=== PATIENT | female | born 1980 | race Caucasian/White ===

== ENCOUNTER → 2022-10-08 12:33 | Outpatient (CLI) | payer OTHER, SELFPAY ==
--- NOTE | ~2022-10-08 | MM_ITS ---
EXAMINATION: MM screening dionisio BI w lauri HISTORY: Screening mammogram TECHNIQUE: Craniocaudal and mediolateral oblique 3-D tomosynthesis images were obtained and synthetic 2-D images were generated. CAD analysis was submitted and interpreted. COMPARISON: No prior mammogram is available for comparison at this institution. BREAST PARENCHYMAL COMPOSITION:The breasts are heterogeneously dense, which may obscure small masses. FINDINGS: There is a 1.6 cm round mass in the upper, inner left breast. No mass lesion or distortion are evident in the right breast. No suspicious microcalcifications in either breast. IMPRESSION: 1.6 cm upper, inner left breast mass. Spot compression views and ultrasound are recommended for furt her evaluation. BI-RADS Category 0: Incomplete: Needs additional imaging evaluation. Reviewed, dictated and finalized at [facility]. IMPRESSION: 1.6 cm upper, inner left breast mass. Spot compression views and ultrasound ar e recommended for further evaluation. BI-RADS Category 0: Incomplete: Needs additional imaging evaluation.
== END ==
PROVIDERS: PCP Nurse Practitioner Obstetrics & Gynecology; Visit Provider Nurse Practitioner Obstetrics & Gynecology
DX: Z12.31 Encounter for screening mammogram for malignant neoplasm of breast (principal); R92.8 Other abnormal and inconclusive findings on diagnostic imaging of breast
CPT/HCPCS: 77063; 77067

== ENCOUNTER → 2022-11-03 09:21 | Outpatient (CLI) | payer OTHER, SELFPAY ==
--- NOTE | ~2022-11-03 | MMUS_ITS ---
EXAMINATION: MM diagnostic dionisio LT w lauri, US breast LT limited HISTORY: Left breast mass TECHNIQUE: Additional 3-D tomosynthesis images of the left breast were performed and synthetic 2-D im ages were generated. CAD analysis was submitted and interpreted. High resolution limited left breast ultrasound was performed. COMPARISON: 10/08/2022 FINDINGS: MAMMOGRAPHIC FINDINGS: There is a 1.5 cm round, circumscribed, equal density mass in the middle third of the upper inner tip ast at the 11:00 location 4.5 cm from the nipple. No suspicious calcification or architectural distor tion are identified. ULTRASOUND: There is a 1.5 cm cyst at the 10:00 location, 5 cm from the nipple corresponding to the mammographic finding in question. An adjacent 7 mm cyst is also noted at the 10:00 location. There is a 1.9 x 1.1 cm oval, circumscribed, parallel, hypoechoic mass with microlobulated margins, posterior acoustic enh ancement, and peripheral vascularity at the 12:00 location, 3 cm from the nipple. IMPRESSION: 1. Indeterminate sonographically detected mass at the 12:00 location, 3 cm from the nipple. Ultrasoun d-guided biopsy is recommend. 2. Simple cyst of the breast corresponding to the finding on screening mammogram. BI-RADS category 4, suspicious findings. Reviewed, dictated and finalized at location [facility]. IMPRESSION: 1. Indeterminate sonographically detected mass at the 12:00 location, 3 cm from the nipple. Ultrasound-guided biopsy is recommend. 2. Simple cyst of the breast corresponding to the finding on screening mammogra m. BI-RADS category 4, suspicious findings.
== END ==
PROVIDERS: PCP Nurse Practitioner Obstetrics & Gynecology; Visit Provider Nurse Practitioner Obstetrics & Gynecology
DX: N63.20 Unspecified lump in the left breast, unspecified quadrant (principal); R92.8 Other abnormal and inconclusive findings on diagnostic imaging of breast
CPT/HCPCS: 76642; 77061; 77065; G0279

== ENCOUNTER 2022-12-28 09:57 | Outpatient (CLI) | payer OTHER, SELFPAY ==
--- NOTE | ~2022-12-28 | MMUS_ITS ---
MM post biopsy invasive LT, US breast biopsy LT w image EXAMINATION: US GUIDED NEEDLE BIOPSY WITH VACUUM ASSISTANCE DATE: 12/28/2022 11:57 CDT INDICATION: Left breast mass seen on prior examination. Ultrasound-guided core biopsy is requested t o evaluate for malignancy. TECHNIQUE AND FINDINGS: The risks and potential benefits of the procedure were discussed with the patient, and written inform ed consent was obtained. After sterile preparation of the left breast, 1% lidocaine was utilized for local anesthesia. 1% lidocaine with epinephrine was used for deep anesthesia. A 10G vacuum-assisted biopsy gun needle was advanced through to the outer edge of the region of inter est from a superior approach utilizing sonographic guidance. A total of three tissue core samples we re obtained through the lesion. The mass completely resolved post biopsy, possibly a complicated cyst . An Inrad tissue marker clip was then placed at the biopsy site. Hemostasis was achieved. The patient tolerated procedure well and there was no evidence of immediate complication. The patien t was given verbal instructions partly is from the department. Left breast mammograms to document ti ssue marker clip placement. The tissue samples were submitted to surgical pathology for histologic an alysis. IMPRESSION: 1. Successful ultrasound-guided vacuum-assisted biopsy of left breast mass with tissue marker placem ent. There is complete resolution of the mass post biopsy. Please refer to pathology report for histo logic analysis. Reviewed, dictated and finalized at location [facility]. IMPRESSION: 1. Successful ultrasound-guided vacuum-assisted biopsy of left breast mass wit h tissue marker placement. There is complete resolution of the mass post biopsy . Please refer to pathology report for histologic analysis.
== END 2022-12-28 09:58 | disposition home or self-care (01) ==
PROVIDERS: PCP Nurse Practitioner Obstetrics & Gynecology; Visit Provider Surgery
DX: N60.02 Solitary cyst of left breast (principal)
CPT/HCPCS: 19083; 88305; A4648

== ENCOUNTER 2024-09-11 13:30 | Emergency (ER) | payer OTHER, SELFPAY ==
--- NOTE | 2024-09-11 13:39 | ED_ITS ---
HPI - General Adult General Chief complaint: Dizziness Stated complaint: Dizziness Time Seen by Provider: 09/11/24 13:44 Source: patient, RN notes reviewed and old records reviewed Mode of arrival: ambulatory Limitations: no limitations History of Present Illness HPI narrative: 43-year-old female presents to the [facility] with complaints of intermittent dizziness for approximately 1 month. States that started when she was visiting family in [place]. Patient states that she did a telehealth visit in early August, was prescribed Antivert, did not take it due to what she read about side effects. Patient states that she will feel hot, get dizzy feeling like a motion sickness at times has throbbing behind her right eye. Denies any vomiting, fevers, chest pain, denies racing are. Has felt nauseous, flushed at times. Patient reports that when she is on her phone to lung or scrolling as well as on a computer she will also get dizzy. Onset (ago): month(s) (1) Treatments prior to arrival: none Related Data Allergies Allergy/AdvReac Type Severity Reaction Status Date / Time No Known Allergies Verified 09/04/10 03:32 Review of Systems Review of Systems: All systems reviewed & are unremarkable except as noted in HPI and below Constitutional: Constitutional: Reports no additional constitutional complaints ENT: Reports system reviewed and no additional complaints, except as documented Cardiovascular: Cardiovascular: Reports no additional cardiovascular complaints, Denies chest pain and Denies dyspnea Respiratory: Respiratory: Reports no additional respiratory complaints, Denies chest congestion, Denies cough and Denies dyspnea Musculoskeletal: Musculoskeletal: Reports no additional musculoskeletal complaints Integumentary/Breasts: Skin/Breast: Reports system reviewed and no additional complaints, except as docu Neurologic: Reports as per HPI [facility], [facility] Past Medical History Medical History (Updated 09/11/24 @ 13:59 by Joy Drake APRN) Ganglion cyst of left foot 10/2020 Social History Social History (Updated 11/29/22 @ 13:33 by Estee Vera CMA) Smoking status: Current every day smoker Tobacco type: cigarettes Additional smoking assessment comments: 1/2 pack a day Alcohol intake: current Alcohol use details: special occassion Substance use: never Substance use type: marijuana Lack of Transportation: No Lack of Food: Never True Current Housing: I Have Housing Concerned About Future Housing: No Difficulty Paying Gas/Electric Bills: No Difficulty Paying for Meds: No Currently Unemployed: No Education: Associate Degree Difficulty w/ Childcare or Family Care: No Comments At the time of my signature, I reviewed and agree with the nursing past medical, surgical, social, and family history. There is no relevant family history pertinent to the patient complaint. Exam Const: General: cooperative, healthy appearing, comfortable, no acute distress, well developed, alert and well nourished Nutritional Appearance: well nourished Orientation/consciousness: patient oriented x3 Limitations: no limitations HENMT: Head: normal to inspection Ears: hearing grossly normal bilaterally, external ears normal, TM normal on the left, EAC's normal, mastoids normal, no periauricular adenopathy and TM abnormal with fluid behind the TM on the right; not bulging Face/Nose/Sinus: Normal external nose present Face and sinus: normal facial exam Mouth: Yes Normal oral and palatal mucosa present, Yes lip normal, Yes tongue normal and Yes moist mucous membranes Throat: posterior oropharynx normal, uvula midline and no uvular edema Eyes: General: appearance normal, both eyes and all related structures Visual Holt: normal visual holt by confrontation Alignment and Position: alignment normal Periorbital: periorbital findings normal Eyelids: eyelids normal Sclera: sclerae normal Cornea: corneas normal Pupils: Equal, round and reactive pupils present and Pupils normal by confrontation EOM: EOMs intact bilaterally and No Nystagmus present Direct Ophthalmoscopy: no photophobia Neck: Neck: normal visual inspection, full ROM, no lymphadenopathy and no meningeal signs Chest: Chest palpation & inspection: normal inspection of the chest Resp: Effort & Inspection: normal respiratory effort and able to speak in complete sentences Auscultation: clear to auscultation bilaterally, no crackles, no rales, no rhonchi and no wheezes Cardio: Rate: regular rate Skin: General skin exam: normal color and no rashes or lesions noted Neuro: General: patient oriented x3, gait normal, tone normal, moves all extremities, no meningeal signs and no focal motor deficits Cranial nerves: Yes facial sensation intact/muscles of mastication intact, Yes Equal, round and reactive pupils present, Yes Bilaterally intact EOM present, Yes Nystagmus not present, Yes Normal facial strength present, Yes facial symmetry, Yes Midline tongue present and Yes Symmetric palate elevation present Cognition (Neuro): normal cognition Speech: normal speech Gait exam (Neuro): Normal gait present Motor exam (neuro): 5/5 motor strength present throughout and Motor abnormalities not present Extrem: General: normal to inspection, full ROM, capillary refill normal and normal gait Psych: Appearance: grossly normal and well kempt Mental Status: mental status grossly normal Speech and movement: Normal speech and movement present and Clear speech present Affect: normal affect Attitude: cooperative Course Course Level of Care: Express Care Visit Vital Signs Vital signs: Vital Signs Temperature 97.2 F L 09/11/24 13:40 Pulse Rate 78 09/11/24 13:40 Respiratory Rate 18 09/11/24 13:40 Blood Pressure 145/80 H 09/11/24 13:40 Pulse Oximetry 100 09/11/24 13:40 Oxygen Delivery Room Air 09/11/24 13:40 Temperature 97.2 F L 09/11/24 13:40 Pulse Rate 78 09/11/24 13:40 Respiratory Rate 18 09/11/24 13:40 Blood Pressure 145/80 H 09/11/24 13:40 Pulse Oximetry 100 09/11/24 13:40 Oxygen Delivery Room Air 09/11/24 13:40 Reviewed Medical Decision Making MDM Narrative Medical decision making narrative: Patient sitting comfortably in exam room. Nontoxic, vitals stable. Patient in no acute distress Patient presents for intermittent dizziness. No neurologic deficits, no abnormal findings. Patient with most likely vertigo, encourage patient to follow-up with primary care provider in discussed signs and symptoms of proceed to the emergency room which she verbalized understanding Discharge instructions reviewed with patient, as well as provided in writing per nursing staff. The instructions also include specific and strict return/GO TO THE ER as well as f/u information. All questions have been answered, and the patient deny any further questions with discharge and discharge plan. Some parts of this dictation were generated by voice recognition software and may contain typographical and/or grammatical inaccuracies. Differential Diagnosis Differential Diagnosis: Vertigo, dizziness Medical Records Medical records reviewed: Yes I reviewed the external patient's medical records. Vital Signs Vital Signs: Vital Signs Temperature 97.2 F L 09/11/24 13:40 Pulse Rate 78 09/11/24 13:40 Respiratory Rate 18 09/11/24 13:40 Blood Pressure 145/80 H 09/11/24 13:40 Pulse Oximetry 100 09/11/24 13:40 Oxygen Delivery Room Air 09/11/24 13:40 Temperature 97.2 F L 09/11/24 13:40 Pulse Rate 78 09/11/24 13:40 Respiratory Rate 18 09/11/24 13:40 Blood Pressure 145/80 H 09/11/24 13:40 Pulse Oximetry 100 09/11/24 13:40 Oxygen Delivery Room Air 09/11/24 13:40 Reviewed Lab Data Lab results reviewed: Yes I reviewed the patient's lab results. Labs: Reviewed Critical Care Time Critical Care Time Critical Care Time: No Discharge Plan Discharge Clinical Impression: Vertigo Patient Disposition: Home, Self-Care Condition: Stable Instructions: Antibiotic Form, Benign Paroxysmal Positional Vertigo (ED), Dizziness (ED) Additional Instructions: take meclizine as prescribed follow-up with primary care provider for worsening symptoms go directly to the emergency room Patient Language: Czech Follow-up/Referrals: Jose Alejandro Michael DO [Physician] - Gordon Nichols MD [Primary Care Provider] - Stand Alone Forms: Work/School Release IP Time of Disposition: 13:58
[2024-09-11 13:40] VITALS: BP 145/80; PULSE 78; RESP 18; TEMP 36.2; O2SAT 100
--- OUTSIDE RECORDS SUMMARY | 2024-09-11 14:41 | XMS_ITS | Clinical Summary ---
Author Organization [facility] Address [address] [place] [address] Care Team Providers Care Valve Tester Name Role Phone Unavailable Primary Care Provider Unavailabl e Source Comments [facility],non-owned Affiliates and Associated Physician Practices is amultiple site organization consisting of ambulatory clinics and hospital sitesin [place], [place], [place] and [place]. This disclosure is being madepursuant to the Care Everywhere program and may not contain all information available regarding this patient. Last updated 18.[facility] Allergies No known active allergies Medications * Be aware that medications may not be up to date on this document. Alwaysverify current medications with the patient. 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 Pulse 82 06/27/2019 3:29 PM 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 Temperature 36.9 C (98.4 F) 06/27/2019 3:29 PM 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 Respiratory Rate 16 06/27/2019 3:29 PM 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 Oxygen Saturation 96% 06/27/2019 3:29 PM 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 Inhaled Oxygen Concentration - - Weight 70.3 kg (155 lb) 06/27/2019 3:29 PM 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 Height 157.5 cm (5' 2 ) 06/27/2019 3:29 PM 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 Body Mass Index 28.35 06/27/2019 3:29 PM 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 Plan of Treatment Health Maintenance Due Date Last Done Comments LIPID TESTING 1979 MAMMOGRAM 1979 PAP SMEAR 1979 HIV SCREENING 10/09/1994 HEPATITIS C SCREENING 10/05/1997 DTAP/TDAP/TD VACCINES (1 - Tdap) 10/09/1998 HEPATITIS B VACCINE (1 of 3 - 19+ 3-dose series) 10/09/1998 PNEUMOCOCCAL VACCINE (1 of 2 - PCV) 10/09/1998 COVID-19 VACCINE (1 - 2023-2 5 season) 2024 INFLUENZA VACCINE (#1) 2024 DEPRESSION SCREENING 06/13/2024 ZOSTER VACCINE (1 of 2) 10/09/2029 HIB VACCINE Aged Out No longer eligi ble based on patient's age to complete this topic HPV VACCINE Aged Out No longer eligi ble based on patient's age to complete this topic MENINGOCOCCAL (Group B) VACC INE SHARED DECISION-MAKING Aged Out No longer eligibl e based on patient's age to complete this topic MENINGOCOCCAL GROUPS A/C/Y/W VACCINE Aged Out No longer eligible b ased on patient's age to complete this topic
--- OUTSIDE RECORDS SUMMARY | 2024-09-11 14:41 | XMS_ITS | Clinical Summary ---
Author Organization [facility] Address [address] [place] [id number] Care Team Providers Care Line Cleaner Name Role Phone Gordon Nichols MD Primary Care Provider [phone] Allergies No known active allergies Medications acetaminophen 500 MG tablet Take 500 mg by mouth every 6 (six) hours as needed for Pain. Active HYDROcodone-acet aminophen 5-325 MG tabletIndication s:Acute Pain < 7 Day Supply Take 1 tablet by mouth every 6 (six) hours as needed for Pain. Indications : Acute Pain < 7 Day Supply 20 tablet 10/24/2020 Active ibuprofen 800 MG tabletIndication s:Mass of soft tissue of foot Take 1 tablet (800 mg total) by mouth every 8 (eight) hours as needed for Pain. 30 tablet 10/24/2020 Active Active Problems No known active problems Family History Medical History Relation Comments Hypertension Father Hypertension Mother Relation Status Comments Daughter Alive Father Alive Mother Alive Son Alive Social History Tobacco Use Types Packs/Day Years Used Date Smoking Tobacco: Every Day Cigarettes 0.5 15 Smokeless Tobacco: Never Alcohol Use Standard Drinks/Week Comments Not Currently 0 (1 standard drink = 0.6 oz pure alcohol) very rarely drinks alcohol, couple drinks a year Comments No Sex and Gender Information Value Date Recorded Sex Assigned at Not on file Legal Sex Female 6:16 PM CDT Gender Identity Not on file Sexual Orientation Not on file Last Filed Vital Signs Vital Sign Reading Time Taken Comments Blood Pressure 121/75 10/24/2020 1:50 PM CDT Pulse 74 10/24/2020 1:50 PM CDT Temperature 36.7 C (98 F) 10/24/2020 1:50 PM CDT Respiratory Rate 16 10/24/2020 1:50 PM CDT Oxygen Saturation 100% 10/24/2020 1:50 PM CDT Inhaled Oxygen Concentration - - Weight 69.2 kg (152 lb 8.9 oz) 10/24/2020 9:45 A M CDT Height 160 cm (5' 3 ) 10/21/2020 12:59 PM CDT Body Mass Index 27.02 10/21/2020 12:59 PM CDT Plan of Treatment Health Maintenance Due Date Last Done Comments Cervical Cancer Screening Pa p Smear (Age 30 to 64) Every 3 Years 1979 Annual Physical 10/09/1982 Pneumococcal Vaccine: Pediat rics (0 to 5 Years) and At-Risk Patients (6 to 64 Years) (1 of 2 - PCV) 10/09/1985 Hepatitis C 10/09/1997 DTaP, Tdap and Td Vaccines ( 1 - Tdap) 10/09/1998 Hepatitis B Vaccines (1 of 3 - 19+ 3-dose series) 10/09/1998 Cervical Cancer Screening Pa p with HPV Testing (Age 30 to 64) Every 5 Years 10/09/2009 Cervical Cancer Screening with HPV 10/09/2009 Mammogram Screening 2019 COVID-19 Vaccine ( - 2023-2 5 season) 2024 Influenza Adult (#1) 2024 HPV Vaccines Aged Out No longer eligi ble based on patient's age to complete this topic Meningococcal B Vaccine Aged Out No l onger eligible based on patient's age to complete this topic Meningococcal Vaccine Aged Out No adolfo sarahi eligible based on patient's age to complete this topic RSV Immunizations Under 20 Months Aged Out No longer eligible based on patient's age to complete this topic Insurance Care Teams Line Cleaner Relationship Specialty Start Date End Date Gordon Nichols MD [address] [place] [id number] PCP - General FAMILY PRACTICE 10/21/20
--- OUTSIDE RECORDS SUMMARY | 2024-09-11 14:42 | XMS_ITS | Encounter Summary ---
Author Organization [facility] Address [address] [place] [address] Care Team Providers Care Brand Director Name Role Phone Gordon Nichols MD Primary Care Provider [phone] Encounter Details Date Type Department Care Team (Late st Contact Info) Description 10/24/2020 Prep for Procedure [facility]-Ad[facility] Testing [address] [place] [id number] Manuel Perez, DPM [address] [place] [id number] Social History Tobacco Use Types Packs/Day Years [...] on file Sexual Orientation Not on file COVID-19 Exposure Response Date Recorded In the last month, have you been in contact with someone who was confirmed or suspected to have Coronavirus / COVID-19? No / Unsure 10/24/2020 9:11 AM CDT documented as of this encounter Plan of Treatment Not on file documented as of this encounter Visit Diagnoses Diagnosis Preoperative testing- Primary Preoperative examination, unspecified documented in this encounter Additional Health Concerns Infection Onset Date Last Indicated Resolved Time COVID-19 Rule Out 10/23/2020 10/23/2020 10/24/2020 7:45 AM CDT documented as of this encounter Care Teams Brand Director Relationship Specialty Start Date End Date Gordon Nichols MD [address] [place] [address] PCP - General FAMILY PRACTICE 10/21/20 documented as of this encounter
--- OUTSIDE RECORDS SUMMARY | 2024-09-11 14:42 | XMS_ITS | Continuity of Care Document ---
Author Organization [facility] Address [address] [place] [address] [address] [place] [address] Phone Care Team Providers Care Non Food Receiving Clerk Name Role Phone Jovana Estevez Unavailable Unavailable Procedures Procedure Date Removal Of Chalazion Advance Directives Directive Yes / No Effective Date File Name No Information Encounters Encounter Description Practice Location Reason(s) For Visit Diagnoses Date Provider Providers Copied on Encounter [facility], [address] [place] [address] [address], [place], [place], [id number], [place] tel:[phone] [facility] No Information Aug-0 9-201 0 Zenaida Whaley. [address] , [address], [place], [address], [place]. tel:[phone] Referring Provider: Christina Carrillo OD, [address] [place], [address]. tel:[phone] Family History Family Member Type Diagnosis Age At Onset No Information Payers Payer name Insurance type Covered republican ID Authoriza tion(s) [facility] Commercial CI [id number] Social History Type Description Quantity Date Captured Comments Sex Female Smoking Status No Information Chief Complaint And Reason For Visit No Information Reason For Referral Reason For Referral No Information History Of Present Illness Encounter Date Complaint History Of Prese nt Illness No Information Functional Status Date Functional Assessmen t No Information Instructions Date Instruction Additional Infor mation No Information Assessments Type Assessment Date No Information Patient Care Teams Name Effective Dates (start - stop) Status Members No Information
--- OUTSIDE RECORDS SUMMARY | 2024-09-11 14:42 | XMS_ITS | Data Portability ---
Author Organization [facility] Address [address] [place] [address] Care Team Providers Care Dog Or Horse Racing Official Name Role Phone TERRY HERNANDEZ Primary Care Provider [phone] Assessment Encounter Date Assessment Date Assessment LastModified by Organization Details LastModified Time 05/25/2022 05/25/2022 Annual gynecological exam performed. Patient will come back in a year unless there are new symptoms. [email or web address] Not available 05/25/2022 11:25:03 Plan of Treatment Reminders Order Date Submit Date Provider Last Modified By Organization Details Last Modified Time Details Appointments None record ed. Lab None record ed. Referral None record ed. Procedures None record ed. Surgeries None record ed. Imaging None record ed. Medication Orders None record ed. Patient TargetsNo targets recorded. Patient Instructions Encounter Date Encounter Id Patient Instructions Last Modified By Organization Details Last Modified Time 09/26/2019 850 call if any questions or concerns Not available 09/26/2019 12:11:33 Reason for Referral None Reported. Results Created Date Observation Date Name Description Value Unit Range Abnormal Flag Note LastModifiedBy Organization Detail LastModifiedTime 05/25/2005/25/2022 IMAGE GUIDE D PAP AND HPV REGAR DLESS image guided Pap, HPV regardless of Pap result SEE RESULT S BELOW CASE REPOR T: Cytol ogy Gynec ologi mali Repor t Case: [id number] Autho lacey fabian Provi kailee: Brent Jackman Colle cted: 05/25 1414 CLERICAL OFFICE Order ing Locat ion: [place] [facility] Recei maria a: 05/26 0606 First Scree n: DeLuc a, Marcia, CT Rescr een: Shaila Willingham, CT Speci men: Scree rickey Pap - Image d, Cervi x STATE MENT OF ADEQU ACY: Satis facto ry for evalu ation Trans forma tion zone compo nent prese nt FINAL DIAGN OSIS: Negat michele for Intra epith elial Lesio n or Jaleesa rizocy (NIL) . Shift in perfecto sugge stive of bacte rial vagin osis. Elect holger cartagena stephanie d by Shaila Willingham, CT on 05/27 at 7:45 AM ----- ----- ----- ----- ----- ----- ----- ----- ----- ----- ----- ----- ----- ----- ----- ----- ----- ---- HPV RESUL TS: HPV mRNA E6/E7 : No HPV mRNA Detec rola NOTE: This high risk HPV mRNA assay detec ts fourt een high- risk HPV types (16, 18, 31, 33, 35, 39, 45, 51, 52, 56, 58, 59, 66, 68) witho ut diffe renti ation . COMME NT: Note: This speci men was revie wed by a Cytot echno logis t and/o r Patho logis t (as indic ated in this repor t) after evalu ation using the Thinp rep Imagi ng Syste m. CLINI MALI INFOR MATIO N: Menst rual Statu s: LMP (if appli cable ): 2021 Clini mali Histo ry/Pr eviou s Pap: Type of Neopl pa (if appli cable ): Signi fican t Clini mali Findi ngs: Other Histo ry: Hormo grace (if appli cable ): PAP EDUCA JATINDER L NOTE: The Pap Test is a scree rickey test with an inher ent false negat michele rate. Liqui d-bas ed sampl ing may decre ase, but will not elimi yvan, false negat michele resul ts. A negat michele resul t does not precl ude the prese nce and/o r devel opmen t of disea se, since the prese nce of abnor mal cells in the sampl e depen ds on the locat ion of the lesio n and sampl ing techn ique. Christiano nued regul ar scree rickey is the best metho d of cance r preve ntion . If repor rola cytol ogic findi ng do not corre late with physi mali and/o r histo rical findi ngs, furth er inves tigat ion is recom gisella d, as clini deysi warra nted. Not Available [facility] (Lab) [address], [place], [address], 05/27/2022 08:48:59 10/09/19 23 10/08/2022 MAMMO , scree rickey, bilat eral No observ ation record ed. [address], [place], [address], 10/20/2022 12:24:37 10/09/19 23 10/08/2022 MAMMO , scree rickey, bilat eral No observ ation record ed. [email or web address] [facility] [address], [place], [address], 10/12/2022 14:12:08 10/13/19 23 10/08/2022 MAMMO , scree rickey, bilat eral No observ ation record ed. [address] [facility] [address], [place], [address], 10/20/2022 12:24:38 11/05/19 23 11/03/2022 MAMMO , diagn ostic , digit al, unila teral No observ ation record ed. [address] [facility] [address], [place], [address], 11/22/2022 12:33:36 11/05/19 23 11/03/2022 MAMMO , diagn ostic , digit al, unila teral No observ ation record ed. [email or web address] [facility] [address], [place], [address], 11/11/2022 11:57:11 Result Notes None recorded. Problems Name Problem SNOMED Code Status Onset Date Resolution Date Notes Provider Name and Address Organization Details Recorded Time Uses IUD (intraute rine device) contracep tion 350014382 Active 2014 Surveillan ce of intrauteri ne contracept michele device;Rec orded Elsewhere: No Locatio n: [facility] Anahi rce: EHR Chroni c: N Practice ID: [id number] Billa ble Time: 09:45:00 AM Not Available [facility] 0 22:00:10 Problem Notes None recorded. Procedures Surgical History Date Name Laterality Status Provider Name and Address Organization Details Recorded Time 2 Date of Last Pap Smear completed Glory Cabrera [facility] 05/25/2022 11:26:59 1 procedure on foot completed Gloryiliana Cabrera [facility] 05/25/2022 11:28:51 Imaging Results Imaging Date Name Status LastModified by Organiz atformerly [facility] Details LastModified Time 10/08/2022 MAMMO, screening, bilateral completed [email or web address] [facility] [address], [place], [address], 10/20/2022 12:24:37 10/08/2022 MAMMO, screening, bilateral completed [email or web address] [facility] [address], [place], [address], 10/12/2022 14:12:08 10/08/2022 MAMMO, screening, bilateral completed [email or web address] [facility] [address], [place], [address], 10/20/2022 12:24:38 11/03/2022 MAMMO, diagnostic, digital, unilateral completed [email or web address] [facility] [address], [place], [address], 11/22/2022 12:33:36 11/03/2022 MAMMO, diagnostic, digital, unilateral completed [email or web address] [facility] [address], [place], [address], 11/11/2022 11:57:11 Procedure Notes None recorded. Medical Equipment None Reported. Allergies No known drug allergies Medications Name Sig Start Date Stop Date Status Note LastModified by Organization Details LastModified Time Mirena 21 mcg/24 hr (up to 8 years) 52 mg intrauter ine device Take 1 device by intraute rine route as directed . 2019 active removal date 5 Not Available Not Available Not Available benzonata te 200 mg capsule 09/25 completed Not Available Not Available Not Available clobetaso l 0.05 % topical cream apply by topical route 2 times every day a thin layer to the affected area(s) 10/04 completed Prescrib ed Elsewher e: No Locat ion: [facility] odify By: irena ramirez Enco unter DateTime : 01/26/20 12 09:15:00 AM Not Available Not Available Not Available Diflucan 150 mg tablet take 1 tablet (150MG) by oral route once 10/04 completed Prescrib ed Elsewher e: No Locat ion: [facility] odify By: irena pulidoi Enco unter DateTime : 01/26/20 12 09:15:00 AM Not Available Not Available Not Available Metrogel Vaginal 0.75 % (37.5 mg/5 gram) insert 1 applicat orful by vaginal route every day at bedtime for 5 nights. 10/25 completed Prescrib ed Elsewher e: No [facility] od[facility] By: val Guardado er DateTime : 10/26/19 14 10:03:30 AM Not Available Not Available Not Available amoxicill in 875 mg-potass ium clavulana te 125 mg tablet 09/25 completed Not Available Not Available Not Available Ortho-Cyc dariana (28) 0.25 mg-35 mcg tablet take 1 tablet by oral route every day 11/07 completed Prescrib katrin Thurman e: Tammy [facility]ara[facility] By: saskia barron DateTime : 10/26/19 10:15:00 AM Not Available Not Available Not Available Vitals Date Recorded Body height Body mass index (BMI) Body weight Systolic blood pressure Diastolic blood pressure Provider Name and Address Organization Details Last Updated DateTime 09/26/2019 160.66 cm 28.6 kg/m2 99996.56 g 132 mm[Hg] 79 mm[Hg] Glory Cabrera [facility] 0 16:54:54 Date Recorded Body height Body mass index (BMI) Body weight Provider Name and Address Organization Details Last Updated DateTime 05/25/2022 160.02 cm 28 kg/m2 46002.59 g Glory Cabrera [facility] 05/25/2022 11:25:31 Date Recorded Systolic blood pressure Diastolic blood pressure Provider Name and Address Organization Details Last Updated DateTime 05/25/2022 126 mm[Hg] 74 mm[Hg] Annie Blackman, [facility]- [address], [place], [address], [facility] 05/25/2022 11:33:08 Social History Question Answer Notes LastModified by Organizat ion Details LastModified Time Tobacco Smoking Status Current Every Day Smoker Glory Cabrera null, [facility] 05/25/2022 11:26:02 What Is Your Level Of Alcohol Consumption? Occasional [id number] Information not available 04/15/2020 Are You Blind Or Do You Have Difficulty Seeing? No [email or web address] Information not available 05/25/2022 What Is Your Level Of Caffeine Consumption? Moderate [email or web address] Information not available 05/25/2022 In The 14 Days Before Symptom Onset, Have You Had Close Contact With A Laboratory-confir [facility] COVID-19 While That Case Was Ill? No [email or web address] Information not available 05/25/2022 In The 14 Days Before Symptom Onset, Have You Had Close Contact With A Person Who Is Under Investigation For COVID-19 While That Person Was Ill? No Information not available 05/25/2022 Have You Been To An Area Known To Be High Risk For COVID-19? No [email or web address] Information not available 05/25/2022 Are You Deaf Or Do You Have Serious Difficulty Hearing? No [email or web address] Information not available 05/25/2022 What Type Of Diet Are You Following? REGULAR [email or web address] Information not available 05/25/2022 Which Illicit Or Recreational Drugs Have You Used? No [email or web address] Information not available 05/25/2022 What Is The Highest Grade Or Level Of School You Have Completed Or The Highest Degree You Have Received? 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 No [email or web address] Information not available 05/25/2022 What Was The Date Of Your Most Recent Tobacco Screening? 05/25/2022 [email or web address] Information not available 05/25/2022 Do You Use Protection During Sex? No [email or web address] Information not available 05/25/2022 Do You Use Your Seat Belt Or Car Seat Routinely? Yes [email or web address] Information not available 05/25/2022 Do You Have Smoke And Carbon Monoxide Detectors In Your Home? Yes [email or web address] Information not available 05/25/2022 How Much Tobacco Do You Smoke? 0.5 PPD [id number] Information not available 04/15/2020 Do You Feel Stressed (tense, Restless, Nervous, Or Anxious, Or Unable To Sleep At Night)? [id number] [email or web address] Information not available 05/25/2022 Do You Use Any Illicit Or Recreational Drugs? No [email or web address] Information not available 05/25/2022 Do You Use Sunscreen Routinely? Yes Information not available 05/25/2022 Have You Used IV Drugs? No [email or web address] Information not available 05/25/2022 Sex: Unknown Functional Status Question Answer Note LastModified by Organizat ion Details LastModified Time Do you have difficulty walking or climbing stairs? No [email or web address] Information not available 05/25/2022 Are you able to walk? YESWOREST [email or web address] Information not available 05/25/2022 Are you able to care for yourself? Yes [email or web address] Information not available 05/25/2022 Do you have difficulty dressing or bathing? No [email or web address] Information not available 05/25/2022 What is your exercise level? Occasional [id number] Information not available 04/15/2020 Mental Status None recorded. Family History Relationship Description Onset Age of this Age Resolved Age Notes LastModified by Organization Details LastModified Time Father Hypertensive disorder [email or web address] Not available 09/25 16:59:32 Sister Asthma [email or web address] Not available 09/26/2019 16:59:43 Brother Asthma [email or web address] Not availabl e 09/26/2019 16:59:58 Medical History Condition Response Allergies (Food, seasonal, environmental ) N Other N Breast Cancer N Drug/Latex Allergies/Reactions N Blood Transfusion N Dermatologic Disorders N Lung Disease N Defects or Inherited Disease N Breast Problem N Gestational Diabetes N Hematologic disorders N Anesthesia Complications N History of STI N Deep Vein Thrombosis N Polycystic ovary syndrome N Anxiety Disorder N Autoimmune disease N Arthritis N Infertility N Polyps N Acid Reflux (GERD) N History of abnormal pap N Cancer N Stroke N Varicosities N Neurologic/Epilepsy N Endometriosis N High Cholesterol N Headaches N Fibromyalgia N Kidney Disease N Heart Problems N Kidney or Bladder Problems N Thyroid Problems N GI Problems N Eating Disorder N Anemia N Art (IVF or FET) N Psychiatric Illness N Ovarian Cancer N Diabetes N Pulmonary (TB, Asthma) N Hepatitis/Liver Disease N No Past Medical History N Eczema N Urinary Tract Infection N Abuse/Domestic Violence N Asthma N Trauma/Violence N Depression/ depression N Heart Disease N Pre-Eclampsia N Hypertension N Osteoporosis N Thrombophilias N Gynecological History Statement/Question Response Date of Last Mammogram Date of LMP 05/13/2022 N Was last menstrual period normal Y STIs/STDs N HPV Vaccine N Duration of Flow (days) 4 Current Control Method IUD Age at First Child 19 Frequency of Cycle (Q days) 44 Sexually Active? Y IUD Date of DEXA bone scan Age of first menstrual cycle 12 Date of Last Pap Smear 05/25/2022 Sexual Problems? N Desired Control Method IUD LMP Approximate N Obstetrics History GPAL:G 2 P 2 0 0 2 Type Value Full Term 2 Living 2 Total 2 Past Encounters Encounter ID Performer Location Encounter Start Date Encounter Closed Date Diagnosis/Indication Diagnosis SNOMED-CT Code Diagnosis ICD10 Code Diagnosis Note [address] [facility] [address],[place] [address] 09/26/2019 10:54:54 09/27/2019 15:56:55 [id number] Annie Blackman [place] [address],[place] [address] 05/19/2022 10:45:35 06/12/2022 11:55:14 [id number] Annie Blackman , [place] [address],[place] [address] 05/25/2022 11:17:15 05/25/2022 17:58:30 Gynecologic examination 96250447 Z01.419 Suggested Calcium with Vitamin D 1200-1500m g daily. Patient advised to get an annual flu shot in the fall and she could obtain at [facility] or [facility]. Also to obtain TDap vaccinatio n if you have not had one in the last 10 years. Recommend yearly mammograms . Encouraged monthly self breast exams. Encourage safe sexual practices, to use condoms and limit partners if not already in a monogamous relationsh ip. Engage in daily exercise of low impact aerobic exercise 45-60 minutes 4-5 times weekly. Avoid tobacco and illicit drugs as well as using moderation with alcohol intake less than 1-2 8 oz beverages daily. This lifestyle behavior pattern will lead to less health conditions and longer life span. If BMI greater than 25 weight watchers or dietary consult advised. All questions have been answered. Patient appears to understand informatio n, but if you have any questions please call or respond to this email. Pap/hpv sent STD Screen declined Genetic Screen discussed Colon Screen na Dexa Screen na Routine Labs PCPMammo ordered Health Concerns Section Related Observation LastModified by Organization Detai ls LastModified Time None Recorded Concern Status LastModified by Organization Details LastModified Time None Recorded Advance Directives Directive None Recorded Payers Encounter Date Sequence Insurance Name Policy Number Policy Oliveira Covered Member ID Oliveira Member ID Guarantor Name 09/26/2019 1 [facility]: ([place] [id number] Jonna Blanchard [id number] Jonnaaustin Blanchard 05/19/2022 1 [facility] [id number] Jonna Blanchard [id number] Jonna Blanchard 05/25/2022 1 [facility] [id number] Jonna Blanchard [id number] Jonna Blanchard Notes Date Note Type Note Provider Name and Address Organization Details Recorded Time 09/26/2019 text/html pt has no issues with IUD, no complaints Genny De Leon CNM [address], [place], [address], [facility] 09/26/2019 12:12:38 05/19/2022 text/html Unbillable encounter.Reschedu led [facility] [address], [place], [address], [facility] 06/12/2022 11:55:13 05/25/2022 text/html Annual GYNReport ed bypatient.History: no gynecologic complaints Menstrual cycle:Normal menses Urinary symptoms:No hematuria; No incontinence Vulva:No genital lesion Vagina:Normal vaginal discharge Breast:No breast pain; No breast lump; No nipple discharge Current Contraception:Sati sfied with current contraception; Intrauterine device (iud) Sexual complaints:No sexual complaints; No pain during intercourse; Normal libido Menopausal Symptoms:No menopausal symptoms; Normal vaginal lubrication Psychological symptoms:No depression; No anxiety; No PMDD Preventive measures:Encourage self breast examination; Encourage regular exercise; Encourage no tobacco use; Encourage regular mammograms starting age 40; Followed with yearly pap smears; Needs to schedule mammogram MILANA Lim [address], [place], [address], [facility] 05/25/2022 11:44:28 OBGyn Episode Ob Episode Information Episode Created Date Number of Fetuses Patient Bloodtype Patient rh Status Prepregnancy Weight lbs Domestic Partner Domestic Partner Phone Father Name Heel Lining Paster Status 09/26/19 20 1 CLOSED Fetus Data First Name Last Name Admitted to NICU Weight (g) Sex Living Outcome Pediatric Complications Fetus ID Race Codes Race Delivery Type 3288.54 2 F Full Term 468 Vaginal Delivery Nitesh Calculation Initial Nitesh Date Initial Exam Date Initial Exam Provider Initial Ultrasound Date Last Menstrual Period Date Ultra Sound Weeks Gestation 0 Eighteen To Twenty Week Nitesh Update Ultra Sound Date Fundal Height At Umbil Quickening Date Ultra Sound Latest Weeks Gestation Final Nitesh Confirmed By Final Nitesh Confirmed Date Final Nitesh Date Ultra Sound Latest Days Gestation 0 0 Menstrual History Last Menstrual Date Menses Monthly On Bcp Conception Prior Menses Frequency Hcg Plus Date Menarche Onset Age Delivery Information Delivery Date Delivery Type Labor Anesthesia Weeks Gestation Incision Type Labor Labor Length Hrs Delivered By Post Complications Tubal Sterilization Discharge Date Comments 1 40 Chris 3rd degree laceratio n Discharge Information Feeding Method Contraceptive Method Maternal HG B and HCT Levels Ob Episode Information Episode Created Date Number of Fetuses Patient Bloodtype Patient rh Status Prepregnancy Weight lbs Domestic Partner Domestic Partner Phone Father Name Heel Lining Paster Status 09/26/19 20 1 CLOSED Fetus Data First Name Last Name Admitted to NICU Weight (g) Sex Living Outcome Pediatric Complications Fetus ID Race Codes Race Delivery Type 3316.66 4704 M Full Term 467 Vaginal Delivery Nitesh Calculation Initial Nitesh Date Initial Exam Date Initial Exam Provider Initial Ultrasound Date Last Menstrual Period Date Ultra Sound Weeks Gestation 0 Eighteen To Twenty Week Nitesh Update Ultra Sound Date Fundal Height At Umbil Quickening Date Ultra Sound Latest Weeks Gestation Final Nitesh Confirmed By Final Nitesh Confirmed Date Final Nitesh Date Ultra Sound Latest Days Gestation 0 0 Menstrual History Last Menstrual Date Menses Monthly On Bcp Conception Prior Menses Frequency Hcg Plus Date Menarche Onset Age Delivery Information Delivery Date Delivery Type Labor Anesthesia Weeks Gestation Incision Type Labor Labor Length Hrs Delivered By Post Complications Tubal Sterilization Discharge Date Comments 0 40 Jatin Zelaya Discharge Information Feeding Method Contraceptive Method Maternal HG B and HCT Levels
--- OUTSIDE RECORDS SUMMARY | 2024-09-11 14:42 | XMS_ITS | Encounter Summary ---
Author Organization [facility] Address [address] [place] [id number] Care Team Providers Care Real Estate Agent/Broker Name Role Phone Gordon Nichols MD Primary Care Provider [phone] Encounter Details Date Type Department Care Team (Late st Contact Info) Description 03/23/2021 Audioscribe Message [facility] Patient Accounts [address] [place], [place] [id number] [facility] Provider Financial assistance applicaiton Social History Tobacco Use Types Packs/Day Years [...] on file Sexual Orientation Not on file documented as of this encounter Plan of Treatment Not on file documented as of this encounter Visit Diagnoses Not on filedocumented in this encounter Care Teams Real Estate Agent/Broker Relationship Specialty Start Date End Date Gordon Nichols MD [address] [place] [id number] PCP - General FAMILY PRACTICE 10/21/20 documented as of this encounter
--- OUTSIDE RECORDS SUMMARY | 2024-09-11 14:45 | XMS_ITS | Continuity of Care Document ---
Author Organization [facility] Address [address] [place] [address] [address] [place] [address] Phone Care Team Providers Care Systems Software Designer Name Role Phone Jovana Estevez Unavailable Unavailable Procedures Procedure Date Removal Of Chalazion Advance Directives Directive Yes / No Effective Date File Name No Information Encounters Encounter Description Practice Location Reason(s) For Visit Diagnoses Date Provider Providers Copied on Encounter [facility], [address] [place] [address] [address], [place], [place], [id number], [place] tel:[phone] [facility] No Information Aug-0 9-201 0 Zenaida Whaley. [address] , [address], [place], [address], [place]. tel:[phone] Referring Provider: Christina Carrillo OD, [address] [place], [address]. tel:[phone] Family History Family Member Type Diagnosis Age At Onset No Information Payers Payer name Insurance type Covered democrat ID Authoriza tion(s) [facility] Commercial CI [id number] Social History Type Description Quantity Date Captured [...]
== END 2024-09-11 14:03 | disposition home or self-care (01) ==
PROVIDERS: Emergency Provider Nurse Practitioner; PCP Family Medicine
DX: R42 Dizziness and giddiness (principal); F17.210 Nicotine dependence, cigarettes, uncomplicated
CPT/HCPCS: 99213; G0463

== ENCOUNTER 2025-01-18 09:04 | Emergency (ER) | payer OTHER, SELFPAY ==
--- OUTSIDE RECORDS SUMMARY | 2025-01-18 09:09 | XMS_ITS | Clinical Summary ---
Author Organization [facility] Address [address] [place] [address] Care Team Providers Care Cable Tower Operator Name Role Phone Gordon Nichols MD Primary Care Provider [phone] Allergies No known active allergies Medications acetaminophen [...] A M CDT Height 160 cm (5' 3) 10/21/2020 12:59 PM CDT Body Mass Index 27.02 10/21/2020 12:59 PM CDT Plan of Treatment Health Maintenance Due Date Last Done Comments Cervical Cancer Screening Pa p Smear (Age 30 to 64) Every 3 Years 1979 Colorectal Cancer Screening Colonoscopy (10 Years) 1979 Annual Physical 10/09/1982 Hepatitis C 10/09/1997 DTaP, Tdap and Td Vaccines ( 1 - Tdap) 10/09/1998 Hepatitis B Vaccines (1 of 3 - 19+ 3-dose series) 10/09/1998 Pneumococcal Vaccine: Pediat rics (0 to 5 Years) and At-Risk Patients (6 to 49 Years) (1 of 2 - PCV) 10/09/1998 HPV Vaccines (1 - 3-dose SCD M series) 10/09/2006 Cervical Cancer Screening Pa p with HPV Testing (Age 30 to 64) Every 5 Years 10/09/2009 Cervical Cancer Screening with HPV 10/09/2009 Mammogram Screening 2019 COVID-19 Vaccine (2023-2 5 season) 2024 Meningococcal B Vaccine Aged Out No l onger eligible based on patient's age to complete this topic Meningococcal Vaccine Aged Out No adolfo sarahi eligible based on patient's age to complete this topic RSV Immunizations Under 20 Months Aged Out No longer eligible based on patient's age to complete this topic Insurance Care Teams Cable Tower Operator Relationship Specialty Start Date End Date Gordon Nichols MD [address] [place] [id number] PCP - General FAMILY PRACTICE 10/21/20
--- OUTSIDE RECORDS SUMMARY | 2025-01-18 09:09 | XMS_ITS | Encounter Summary ---
Author Organization [facility] Address [address] [place] [address] Care Team Providers Care Roughing Mill Operator Name Role Phone Gordon Nichols MD Primary Care Provider [phone] Encounter Details Date Type Department Care Team (Late st Contact Info) Description 03/23/2021 2C2P Message [facility] Patient Accounts [address] [place], [place] [id number] [facility] Provider Financial assistance applicaiton Social History Tobacco [...] on filedocumented in this encounter Care Teams Roughing Mill Operator Relationship Specialty Start Date End Date Gordon Nichols MD [address] [place] [id number] PCP - General FAMILY PRACTICE 10/21/20 documented as of this encounter
--- OUTSIDE RECORDS SUMMARY | 2025-01-18 09:09 | XMS_ITS | Encounter Summary ---
Author Organization [facility] Address [address] [place] [address] Care Team Providers Care Bilingual Manager Name Role Phone Gordon Nichols MD Primary Care Provider [phone] Encounter Details Date Type Department Care Team (Late st Contact Info) Description 10/24/2020 Prep for Procedure [facility]-Ad[facility] Testing [address] [place] [id number] Manuel Perez, DPM [address] [facility] [address] [place] [id number] Social History Tobacco Use Types Packs/Day Years [...] documented as of this encounter Care Teams Bilingual Manager Relationship Specialty Start Date End Date Gordon Nichols MD [address] [place] [address] PCP - General FAMILY PRACTICE 10/21/20 documented as of this encounter
--- OUTSIDE RECORDS SUMMARY | 2025-01-18 09:09 | XMS_ITS | Continuity of Care Document ---
Author Organization [facility] Address [address] [place] [address] [address] [place] [address] Phone Care Team Providers Care Scientific Systems Analyst Name Role Phone Jovana Estevez Unavailable Unavailable Procedures Procedure Date Removal Of Chalazion Advance Directives Directive Yes / No Effective Date File Name No Information Encounters Encounter Description Practice Location Reason(s) For Visit Diagnoses Date Provider Providers Copied on Encounter [facility], [address] [place] [address] [address], [place], [place], [id number], [place] tel:[phone] [facility] No Information Aug-0 9-201 0 Zenaida Whaley. [address] , [address], [place], [address], [place]. tel:[phone] Referring Provider: Christina Carrillo OD, [address] [place], [address]. tel:[phone] Family History Family Member Type Diagnosis Age At Onset No Information Payers Payer name Insurance type Covered constitution party ID Authoriza tion(s) [facility] Commercial CI [id number] Social History Type Description Quantity Date Captured [...]
--- OUTSIDE RECORDS SUMMARY | 2025-01-18 09:09 | XMS_ITS | Clinical Summary ---
Author Organization [facility] Address [address] [place] [address] Care Team Providers Care Combination Machine Tender Name Role Phone Unavailable Primary Care Provider Unavailabl e Source Comments [facility],non-owned Affiliates and Associated Physician Practices is amultiple site organization consisting of ambulatory clinics and hospital sitesin [place], [place], [place] and [place]. This disclosure is being madepursuant to the Care Everywhere program and may not contain all information available regarding this patient. Last updated 18.[facility] Allergies No known active allergies Medications * Be aware that medications may not be up to date on this document. Alwaysverify current medications with the patient. benzonatate (TESSALON) 200 MG capsuleIndicati ons:Cough Take 1 capsule by mouth 3 times daily as needed for Cough 30 capsule 06/27/2019 Active Social History Tobacco Use Types Packs/Day Years Used Date Smoking Tobacco: Some Days Cigarettes Smokeless Tobacco: Never Comments No Sex and Gender Information Value Date Recorded Sex Assigned at Not on file Legal Sex Female 1:16 PM DIRECTORY OPERATOR Gender Identity Not on file Sexual Orientation Not on file Last Filed Vital Signs Vital Sign Reading Time Taken Comments Blood Pressure 114/78 06/27/2019 3:29 PM DIRECTORY OPERATOR Pulse 82 06/27/2019 3:29 PM DIRECTORY OPERATOR Temperature 36.9 C (98.4 F) 06/27/2019 3:29 PM DIRECTORY OPERATOR Respiratory Rate 16 06/27/2019 3:29 PM DIRECTORY OPERATOR Oxygen Saturation 96% 06/27/2019 3:29 PM DIRECTORY OPERATOR Inhaled Oxygen Concentration - - Weight 70.3 kg (155 lb) 06/27/2019 3:29 PM DIRECTORY OPERATOR Height 157.5 cm (5' 2) 06/27/2019 3:29 PM DIRECTORY OPERATOR Body Mass Index 28.35 06/27/2019 3:29 PM DIRECTORY OPERATOR Plan of Treatment Health Maintenance Due Date Last Done Comments COLOGUARD (AGES 45-75) - COL ON CA SCREENING 1979 COLON MONITORING 1979 COLONOSCOPY - COLON CA SCREENING 1979 CT COLONOGRAPHY - COLON CA SCREENING 1979 Colorectal Cancer Screening 1979 FIT - COLON CA SCREENING 1979 FLEX SIG - COLON CA SCREENING 1979 LIPID TESTING 1979 MAMMOGRAM 1979 HIV SCREENING 10/09/1994 HEPATITIS C SCREENING 10/05/1997 DTAP/TDAP/TD VACCINES (1 - Tdap) 10/09/1998 HEPATITIS B VACCINE (1 of 3 - 19+ 3-dose series) 10/09/1998 PNEUMOCOCCAL VACCINE (1 of 2 - PCV) 10/09/1998 PAP SMEAR 10/09/2000 HPV VACCINE (1 - 3-dose SCDM series) 10/09/2006 COVID-19 VACCINE (1 - 2023-2 5 season) 2024 DEPRESSION SCREENING 06/13/2024 INFLUENZA VACCINE (#1) 2025 ZOSTER VACCINE (1 of 2) 10/09/2029 HIB VACCINE Aged Out No longer eligi ble based on patient's age to complete this topic MENINGOCOCCAL (Group B) VACC INE SHARED DECISION-MAKING Aged Out No longer eligibl e based on patient's age to complete this topic MENINGOCOCCAL GROUPS A/C/Y/W VACCINE Aged Out No longer eligible b ased on patient's age to complete this topic Insurance [facility]
[2025-01-18 09:10] VITALS: BP 134/68; PULSE 68; RESP 18; TEMP 36.3; O2SAT 100
--- OUTSIDE RECORDS SUMMARY | 2025-01-18 09:10 | XMS_ITS | Continuity of Care Document ---
Author Organization [facility] Address [address] [place] [address] [address] [place] [address] Phone Care Team Providers Care Bucket Hooker Name Role Phone Jovana Estevez Unavailable Unavailable Procedures Procedure Date Removal Of Chalazion Advance Directives Directive Yes / No Effective Date File Name No Information Encounters Encounter Description Practice Location Reason(s) For Visit Diagnoses Date Provider Providers Copied on Encounter [facility], [address] [place] [address] [address], [place], [place], [id number], [place] tel:[phone] [facility] No Information Aug-0 9-201 0 Zenaida Whaley. [address] , [address], [place], [address], [place]. tel:[phone] Referring Provider: Christina Carrillo OD, [address] [place], [address]. tel:[phone] Family History Family Member Type Diagnosis Age At Onset No Information Payers Payer name Insurance type Covered libertarian ID Authoriza tion(s) [facility] Commercial CI [id number] Social History Type Description Quantity Date Captured [...]
--- NOTE | 2025-01-18 09:25 | ED.BACK ---
HPI - Back Pain/Injury General Chief Complaint: Urogenital-Female Stated Complaint: Back Pain Time Seen by Provider: 01/18/25 09:05 Source: patient Mode of arrival: ambulatory Limitations: no limitations History of Present Illness HPI Narrative: Patient is a 44-year-old female who presents with low back pain in urinary urgency and frequency since yesterday. Denies any fever, chills, nausea, vomiting, diarrhea. Denies any history of kidney stones. Does have history of UTI but states it does not feel like last time. Denies any burning with urination or obvious blood in urine. Related Data Allergies Allergy/AdvReac Type Severity Reaction Status Date / Time No Known Allergies Allergy Verified 01/18/25 09:31 Review of Systems Review of Systems: All systems reviewed & are unremarkable except as noted in HPI and below Constitutional: Constitutional: Denies body ache(s), Denies chills, Denies fatigue, Denies fever(s), Denies headache(s), Denies malaise and Denies weakness Eyes: Eyes: Denies blurry vision, Denies irritation and Denies loss of vision ENT: Denies otalgia, Denies headache(s), Denies nasal discharge, Denies sinus pain and Denies sore throat Cardiovascular: Cardiovascular: Denies chest pain, Denies irregular heart rhythm and Denies dyspnea Respiratory: Respiratory: Denies dyspnea Gastrointestinal: Gastrointestinal: Denies abdominal pain, Denies melena, Denies hematochezia, Denies diarrhea, Denies nausea and Denies vomiting Genitourinary: Genitourinary: Reports nocturia, Reports flank pain and Reports urinary urgency Musculoskeletal: Musculoskeletal: Denies back pain, Denies myalgias and Denies arthralgias Integumentary/Breasts: Skin/Breast: Denies pruritus and Denies rash Neurologic: Denies headache(s), Denies loss of vision and Denies weakness Psychiatric: Psychiatric: Reports no additional psychiatric complaints Endocrine: Endocrine: Denies fatigue PMFSH Past Medical History Medical History Ganglion cyst of left foot 10/2020 Social History Social History Smoking status: Current every day smoker Tobacco type: cigarettes Additional smoking assessment comments: 1/2 pack a day Alcohol intake: current Alcohol use details: special occassion Substance use: never Substance use type: marijuana Lack of Transportation: No Lack of Food: Never True Current Housing: I Have Housing Concerned About Future Housing: No Difficulty Paying Gas/Electric Bills: No Difficulty Paying for Meds: No Currently Unemployed: No Education: Associate Degree Difficulty w/ Childcare or Family Care: No Comments At time of signature, agree with nursing past medical, surgical, social and family history. There is no relevant family history pertinent to the presenting complaint. Exam Const: General: cooperative, healthy appearing, comfortable, no acute distress and well nourished Nutritional Appearance: well nourished Orientation/consciousness: patient oriented x3 Limitations: no limitations HENMT: Head: normal to inspection, normocephalic and atraumatic Ears: hearing grossly normal bilaterally and external ears normal Face/Nose/Sinus: Normal external nose present, normal facial exam and face symmetric Face and sinus: normal facial exam and face symmetric Mouth: Yes lip normal Eyes: General: appearance normal, both eyes and all related structures Alignment and Position: alignment normal and position normal Periorbital: periorbital findings normal Eyelids: eyelids normal Pupils: Equal, round and reactive pupils present EOM: EOMs intact bilaterally Neck: Neck: normal visual inspection, full ROM and supple Chest: Chest palpation & inspection: normal inspection of the chest Resp: Effort & Inspection: normal respiratory effort and able to speak in complete sentences Auscultation: clear to auscultation bilaterally Cardio: Rate: regular rate Rhythm: regular rhythm Heart sounds: S1 normal heart sound present and S2 normal heart sound present GI: Inspection: normal to inspection Back/Spine/Pelvis: Back: CVA tenderness (right) Skin: General skin exam: normal color and no rashes or lesions noted Neuro: General: patient oriented x3 and moves all extremities Cranial nerves: Yes Equal, round and reactive pupils present Speech: normal speech Gait exam (Neuro): Normal gait present Extrem: General: normal to inspection, full ROM and no edema Psych: Appearance: grossly normal and well kempt Mental Status: mental status grossly normal Speech and movement: Normal speech and movement present Affect: normal affect Attitude: cooperative Thought process: Normal thought process present Course Course Emergency Course: Patient is aware of diagnosis, understands and agrees to treatment plan. Anticipatory guidance given. Patient agrees to follow-up as directed and is aware of reasons to seek care at the emergency department. Portions of this record may have been created with voice recognition software Level of Care: Express Care Visit Vital Signs Vital signs: Vital Signs Temperature 36.3 C L 01/18/25 09:10 Pulse Rate 68 01/18/25 09:10 Respiratory Rate 18 01/18/25 09:10 Blood Pressure 134/68 01/18/25 09:10 Pulse Oximetry 100 01/18/25 09:10 Oxygen Delivery Room Air 01/18/25 09:10 Temperature 36.3 C L 01/18/25 09:10 Pulse Rate 68 01/18/25 09:10 Respiratory Rate 18 01/18/25 09:10 Blood Pressure 134/68 01/18/25 09:10 Pulse Oximetry 100 01/18/25 09:10 Oxygen Delivery Room Air 01/18/25 09:10 Reviewed MDM - Back Pain/Injury MDM Narrative Medical decision making narrative: Exam findings concerning for UTI or kidney stone. UA showing no blood. Will cover with antibiotics based on symptoms and CVA tenderness; patient is non-toxic appearing and is in no distress. No CMT, adnexal tenderness, or evidence of pelvic etiology. Patient is appropriate for outpatient treatment and follow-up. Differential Diagnosis Differential diagnosis: Likely lumbar radiculopathy, sciatica, strain of lumbar region, pyelonephritis and other (UTI, kidney stone) Medical Records Attestation: I reviewed the patient's medical records. Lab Data Attestation: I reviewed the patient's lab results. Discharge Plan Discharge Clinical Impression: Increased urinary frequency, Costovertebral angle tenderness Patient Disposition: Home Condition: Stable Instructions: Urinary Urgency and Frequency (DC) Additional Instructions: We will send a urine culture to the lab, based on your symptoms and physical exam we will start treatment today. If culture comes back and bacteria is not susceptible to antibiotic, your prescription may change. Your symptoms should improve within a day of starting antibiotics, but you should finish all the antibiotic pills you get. Otherwise your infection might come back Continue with increased water intake. Take Tylenol or ibuprofen as needed for pain or fever. Follow-up with primary care provider for urine recheck or see ER visit if condition worsens with high fever, nausea, vomiting, severe back pain Patient Language: [place] Prescriptions: New ibuprofen 600 mg tablet 600 mg PO TID PRN (Reason: pain) Qty: 30 0RF sulfamethoxazole-trimethoprim 800-160 mg tablet 1 tablet PO Q12H 10 Days Qty: 20 0RF Follow-up/Referrals: Meliton Welsh MD [Physician] - 3 Days Time of Disposition: 09:53
[2025-01-18 09:49] LABS: EDUAAPPEAR Clear; EDUABILI Negative (Negative); EDUABLOOD Negative (Negative); EDUACOLOR1 Yellow; EDUAGLUCOSE Negative (Negative); EDUAKETONE Negative (Negative); EDUALEUKO Negative (Negative); EDUANITRATE Negative (Negative); EDUAPH 5.5; EDUAPROTEIN Negative (Negative); EDUASPGRAVITY 1.015; EDUAUROBILI 0.2
== END 2025-01-18 09:54 | disposition home or self-care (01) ==
PROVIDERS: Emergency Provider Nurse Practitioner Family
DX: R35.0 Frequency of micturition (principal); R10.9 Unspecified abdominal pain; F17.210 Nicotine dependence, cigarettes, uncomplicated
CPT/HCPCS: 81003; 87086; 99213; G0463